=== PATIENT | male | born 1975 ===

== ENCOUNTER 2017-10-04 20:58 | Emergency (ER) | payer MEDICAID ==
[2017-10-04] MEDS: Lidocaine 1% 10 ML MDV INJECT ONE (21:12)
--- NOTE | 2017-10-05 07:17 | ER ---
DATE OF SERVICE: 10/04/2017 HISTORY OF PRESENT ILLNESS: A 42-year-old male here with a fishhook imbedded in his left index finger. The patient states he was trying to release a hook from a fish that was also caught on his ankle rope when the fish flopped and drove one of the hooks into his finger. The patient states he otherwise is healthy. He only takes an [id number] Claritin for medication. OBJECTIVE: GENERAL APPEARANCE: The patient is awake and alert. No obvious distress. VITAL SIGNS: Reviewed as listed. Physical exam, examining the left index finger reveals one of the fishhooks with treble hook is embedded on the distal end of the finger just distal to the DIP joint on the thumb side of the index finger. The remaining hooks were free. There was no active bleeding. There is a little bit of dried blood around the puncture site from the fishhook. DIAGNOSIS: [place] removal. TREATMENT PLAN: The site was swabbed with Betadine. The patient had been soaking his finger in a cleansing solution as well. I injected about 1 mL of 1% lidocaine locally for anesthesia. Then I cut away the remaining looks completely. After this, I used the string and method and was able to remove the hook on the first attempt, so a just a few drops of blood after this. POST CARE INSTRUCTION: The patient is to monitor closely for infection. If any sign of infection develops, he is to come back in for antibiotics. He will be in this area for another 2 or 3 days. Antibiotic ointment and a Band-Aid were applied to his finger after soaking it once again for several more minutes. The patient is to keep it covered for a couple of days. Tylenol or ibuprofen should be used as needed for pain control and followup is otherwise. CRS/MODL /[id number] MATTHEW
== END 2017-10-04 21:50 | disposition home or self-care (01) ==
LOC: LB.ED 20:58
DX: S60.451A Superficial foreign body of left index finger, initial encounter (principal); W45.8XXA Other foreign body or object entering through skin, initial encounter
CPT/HCPCS: 99283; A9270-GY